=== PATIENT | female | born 1950 | race Caucasian/White ===

== ENCOUNTER 2019-07-08 07:37 | Outpatient (CLI) | payer MEDICARE, OTHER ==
[2019-07-08] MEDS ORDERED: LICO1POW2 PO (08:39)
[2019-07-08] MEDS ORDERED: HYDR200T72 PO (08:39)
[2019-07-08] MEDS ORDERED: [UNRECOGNIZED DRUG - OTHER] PO (08:39)
[2019-07-08] MEDS ORDERED: UBID100C24 PO (08:39)
[2019-07-08] MEDS ORDERED: HYDR25TA6 PO (08:39)
[2019-07-08] MEDS ORDERED: TRAZ50TA66 PO (08:39)
[2019-07-08] MEDS ORDERED: NIAC500T35 PO (08:39)
[2019-07-08] MEDS ORDERED: CALC1CAP8 PO (08:39)
[2019-07-08] MEDS ORDERED: FLUO60TA PO (08:39)
[2019-07-08] MEDS ORDERED: MYCO500T3 PO (08:39)
[2019-07-08] MEDS ORDERED: LOSA50TA14 PO (08:39)
[2019-07-08] MEDS ORDERED: OMEP40CA42 PO (08:39)
== END 2019-07-08 23:59 | disposition home or self-care (01) ==
LOC: STARSUM 07:37
PROVIDERS: ATTEND Specialist
DX: Z01.818 Encounter for other preprocedural examination (principal); C50.911 Malignant neoplasm of unspecified site of right female breast; R94.31 Abnormal electrocardiogram [ECG] [EKG]
CPT/HCPCS: 93005

== ENCOUNTER 2019-07-11 08:07 | Day surgery (SDC) | payer MEDICARE, OTHER ==
[2019-07-08 08:37] LABS: BASOPHILS # (AUTO) 0.01 x10^3/uL (0-0.1); BASOPHILS % (AUTO) 0 % (0-1); EOSINOPHILS # (AUTO) 0.01 x10^3/uL (0-0.4); EOSINOPHILS % (AUTO) 0 % (1-7); LYMPHOCYTES # (AUTO) 0.65 x10^3/uL (1-3.4); LYMPHOCYTES % (AUTO) 12 % (22-44); MD NO; MEAN CORPUSCULAR HEMOGLOBIN 31.7 pg (27.0-34.8); MEAN CORPUSCULAR HGB CONC 32.9 g/dL (32.4-35.8); MEAN CORPUSCULAR VOLUME 96.3 fL (80-100); MEAN PLATELET VOLUME 6.9 fL (7.4-10.4); MONOCYTES # (AUTO) 0.46 x10^3/uL (0.2-0.8); MONOCYTES % (AUTO) 9 % (2-9); NEUTROPHILS # (AUTO) 4.12 x10^3/uL (1.8-6.8); NEUTROPHILS % (AUTO) 78 % (42-75); PLATELET COUNT 256 x10^3/uL (130-400); RED BLOOD COUNT 4.04 x10^6/uL (3.82-5.3); RED CELL DISTRIBUTION WIDTH 13.3 % (9.6-15.2)
[2019-07-08 08:46] LABS: ALANINE AMINOTRANSFERASE 27 U/L (12-78); ALBUMIN 3.6 g/dL (3.4-5.0); ANION GAP 6 mmol/L (5-15); CHLORIDE 106 mmol/L (98-107)
[2019-07-08 08:48] LABS: ALKALINE PHOSPHATASE 47 U/L (45-117); BILIRUBIN,TOTAL 0.5 mg/dL (0.2-1.0); TOTAL PROTEIN 6.9 g/dL (6.4-8.2)
[~2019-07-11] VITALS: Ht 165.1 cm; Wt 55.0 kg
[~2019-07-11 08:07] MED LIST: BACITRACIN 50,000 UNIT ONE; BUPIVACAINE/PF 0.5% ONE; CALC1CAP8 PO; EPINEPHRINE 1 MG/ML, 1ML ONE; FLUO60TA PO; HYDR200T72 PO; HYDR25TA6 PO; LICO1POW2 PO; LOSA50TA14 PO; MYCO500T3 PO; NIAC500T35 PO; OMEP40CA42 PO; TRAZ50TA66 PO; UBID100C24 PO; [UNRECOGNIZED DRUG - OTHER] PO
[2019-07-11] MEDS ORDERED: SCOPOLAMINE PATCH, 1.5MG PATCH.TD72 TD ONE (08:30)
[2019-07-11] MEDS ORDERED: GABAPENTIN 300 MG CAPSULE PO ONE (08:30)
[2019-07-11] MEDS ORDERED: ACETAMINOPHEN 500 MG TABLET PO ONE (08:30)
[2019-07-11] MEDS ORDERED: DIAZEPAM 5 MG TABLET PO ONE (08:30)
[2019-07-11 08:45] VITALS: BP 119/65
[2019-07-11] MEDS ORDERED: MIDAZOLAM 1 MG/ML, 2ML ONE (09:58)
[2019-07-11] MEDS ORDERED: FENTANYL PF 250 MCG/5ML ONE (09:58)
[2019-07-11] MEDS ORDERED: DEXAMETHASONE 4 MG/ML, 1ML ONE ×2 (09:59)
[2019-07-11] MEDS ORDERED: CEFAZOLIN 1,000 MG ONE ×2 (09:59)
[2019-07-11] MEDS ORDERED: ROCURONIUM 10MG/ML,5ML ONE (09:59)
[2019-07-11] MEDS ORDERED: PROPOFOL 10 MG/ML, 20ML ONE (09:59)
[2019-07-11] MEDS ORDERED: SUCCINYLCHOLINE 20 MG/ML, 10ML ONE (10:09)
[2019-07-11] MEDS ORDERED: EPHEDRINE 50 MG/ML, 1ML ONE (10:09)
[2019-07-11] MEDS ORDERED: HYDROmorphone 2 MG/ML, 1ML IVPush PRN (10:30)
[2019-07-11] MEDS ORDERED: ONDANSETRON ODT 8 MG PO PRN (10:30)
[2019-07-11] MEDS ORDERED: FENTANYL PF 100 MCG/2ML IV PRN (10:30)
[2019-07-11] MEDS ORDERED: MIDAZOLAM 1 MG/ML, 2ML IV PRN (10:30)
[2019-07-11] MEDS ORDERED: hydrALAzine 20 MG/ML, 1ML IV PRN (10:30)
[2019-07-11] MEDS ORDERED: HALOPERIDOL 5 MG/ML IV PRN (10:30)
[2019-07-11] MEDS ORDERED: PROMETHAZINE 25 MG/ML, 1ML IV PRN (10:30)
[2019-07-11] MEDS ORDERED: ONDANSETRON 2MG/ML, 2ML IV PRN (10:30)
[2019-07-11] MEDS ORDERED: EPHEDRINE 50 MG/ML, 1ML IVPush PRN (10:30)
[2019-07-11] MEDS ORDERED: OXYcodone 5 MG/5 ML ORAL.SOL UDC PO PRN (10:30)
[2019-07-11] MEDS ORDERED: DIAZEPAM 5 MG/ML, 2ML IVPush PRN (10:30)
[2019-07-11] MEDS ORDERED: PROMETHAZINE 12.5 MG SUPP PR PRN (10:30)
[2019-07-11] MEDS ORDERED: MEPERIDINE/PF 25MG/ML,1ML IVPush PRN (10:30)
[2019-07-11] MEDS ORDERED: ALBUTEROL SULFATE 2.5 MG/3 ML NPPB PRN (10:30)
[2019-07-11] MEDS ORDERED: LABETALOL 5MG/ML, 20ML IV PRN (10:30)
[2019-07-11] MEDS ORDERED: ONDANSETRON 2MG/ML, 2ML ONE ×2 (10:55)
== END 2019-07-11 13:00 | disposition home or self-care (01) ==
LOC: OUT 08:07 → MERGE 10:30 → OUT 13:00
PROVIDERS: ATTEND Specialist
DX: N65.1 Disproportion of reconstructed breast (principal); N65.0 Deformity of reconstructed breast; N64.4 Mastodynia; C50.911 Malignant neoplasm of unspecified site of right female breast; I10 Essential (primary) hypertension; Z90.11 Acquired absence of right breast and nipple
CPT/HCPCS: 15777; 19340; 19380; 36415; 71046; 80053; 85025; C1729; C1762; C1789; J0171; J0330; J0690; J1100; J2250; J2405; J2704; J3010